=== PATIENT | female | born 1970 | race Two or more races ===

== ENCOUNTER 2024-10-21 08:30 | Outpatient (RCR) | payer MEDICAID, SELFPAY ==
--- NOTE | 2024-10-21 | XR_ITS ---
Examination: TALIB, hepatobiliary radioisotope scan Gallbladder ejection fraction study. Date and time of exam: October 21, 2024 0903 hours INDICATIONS: Heartburn abdominal pain and acid reflux 5 years Technique: 6.0 mCi of 99M Hepatolite administered. Serial imaging then obtained from immediate through 60 minutes. 1.6 mcg selective catheter Kinevac administered for gallbladder ejection fraction study. Findings: Radioisotope activity within the liver is reasonably homogenous. Gallbladder, common bile duct small bowel activity noted Impression: Gallbladder activity Abnormal gallbladder ejection fraction, 4%, normal greater than 35%
== END 2024-10-27 23:59 | disposition home or self-care (01) ==
LOC: SNUC 08:30
PROVIDERS: PCP Physician Assistant; Referring Provider Internal Medicine Gastroenterology; Visit Provider Internal Medicine Gastroenterology
DX: R93.89 Abnormal findings on diagnostic imaging of other specified body structures (principal)
CPT/HCPCS: 78227; A9537; J2805